=== PATIENT | male | born 1970 | race African-American/Black ===

== ENCOUNTER 2018-08-14 09:44 | Emergency (ER) | payer OTHER ==
[~2018-08-14] VITALS: Ht 165.1 cm; Wt 72.6 kg
[~2018-08-14 09:44] MED LIST: CLARITIN10 MG PO; DARVOCET-N 1001 EACH PO; IBUPROFEN 600600 M1 PO; KEFLEX500 MG PO; NOHOMEMEDICATIONS; NORCO 5-325 TA1 EACH PO
[2018-08-14 10:42] LABS: ABSOLUTE NEUTROPHILS 8.1 thou/uL (1.4-8.2); BASOPHILS 0.3 % (0.0-2.0); EOSINOPHILS 1.7 % (0.0-3.0); HEMATOCRIT 43.5 % (42.0-52.0); HEMOGLOBIN 14.9 gm/dL (14.0-18.0); MCH 30.4 pg (26.0-34.0); MCHC 34.1 g/dL (28.0-37.0); MCV 89.1 fL (80.0-100.0); MONOCYTES 8.8 % (1.0-8.0); PLATELET COUNT 352 thou/uL (150-400); POLYS 71.2 % (36.0-66.0); RBC 4.89 mil/uL (4.50-6.00); RDW 14.4 % (10.5-14.5); WBC 11.4 thou/uL (4.0-11.0)
[2018-08-14 10:50] LABS: CALCIUM 9.1 mg/dL (8.5-10.1)
[2018-08-14] MEDS ORDERED: PREDNISONE 20 M20 MG PO (11:49)
[2018-08-14] MEDS ORDERED: NORCO 5-325 TA1 EACH PO (11:49)
[2018-08-14] MEDS ORDERED: CLEOCIN HCL150 MG PO (11:49)
[2018-08-14] MEDS ORDERED: AZITHROMYCIN 2250 MG PO (12:13)
[2018-08-14 12:18] VITALS: BP 112/76
[2018-08-15] MEDS ORDERED: PREDNISONE 20 M20 MG PO (11:47)
[2018-08-15] MEDS ORDERED: PHENERGAN 25 MG25 M1 PO (11:47)
[2018-08-15] MEDS ORDERED: AZITHROMYCIN 2250 MG PO (11:47)
== END 2018-08-14 12:25 | disposition home or self-care (01) ==
LOC: ER 09:44
PROVIDERS: Nurse Practitioner Family
DX: J18.9 Pneumonia, unspecified organism (principal); R51 Headache; F17.210 Nicotine dependence, cigarettes, uncomplicated; Z88.5 Allergy status to narcotic agent

== ENCOUNTER 2018-08-15 09:37 | Emergency (ER) | payer OTHER ==
[~2018-08-15] VITALS: Ht 165.1 cm; Wt 72.6 kg
[~2018-08-15 09:37] MED LIST changes: +AZITHROMYCIN 2250 MG PO; +CLEOCIN HCL150 MG PO; +PREDNISONE 20 M20 MG PO
[2018-08-15] MEDS ORDERED: AZITHROMYCIN 2250 MG PO (11:47)
[2018-08-15] MEDS ORDERED: PREDNISONE 20 M20 MG PO (11:47)
[2018-08-15] MEDS ORDERED: PHENERGAN 25 MG25 M1 PO (11:47)
[2018-08-15 11:58] VITALS: BP 121/89
== END 2018-08-15 12:01 | disposition home or self-care (01) ==
LOC: ER 09:37
DX: K04.7 Periapical abscess without sinus (principal); F17.210 Nicotine dependence, cigarettes, uncomplicated; Z88.5 Allergy status to narcotic agent